=== PATIENT | female | born 1985 | race Hispanic/Latino ===

== ENCOUNTER → 2019-01-25 | Outpatient (CLI) | payer MEDICAID | END | disposition home or self-care (01) | LOC: RAH 10:17 | PROVIDERS: ATTEND Internal Medicine | DX: M47.816 Spondylosis without myelopathy or radiculopathy, lumbar region (principal); M54.2 Cervicalgia | CPT/HCPCS: 72040; 72100 ==

== ENCOUNTER 2019-02-10 05:31 | Emergency (ER) | payer MEDICAID ==
[2019-02-10] MEDS ORDERED: IBUPROFEN 400 MG TABLET ONE (05:58)
[2019-02-10] MEDS ORDERED: IBUPROFEN 200 MG TAB ONE (05:58)
[2019-02-10] MEDS ORDERED: TETANUS/DIPHTHERIA TOXOID [ADULT] 0.5 ML VIAL IM ONE (05:59)
== END 2019-02-10 07:13 | disposition home or self-care (01) ==
LOC: EDH 05:31
DX: S00.03XA Contusion of scalp, initial encounter (principal); S60.511A Abrasion of right hand, initial encounter; Z90.49 Acquired absence of other specified parts of digestive tract; Y04.2XXA Assault by strike against or bumped into by another person, initial encounter; Y93.89 Activity, other specified; Y92.89 Other specified places as the place of occurrence of the external cause; Y99.8 Other external cause status
CPT/HCPCS: 90471; 90714

== ENCOUNTER 2021-11-01 10:06 | Observation (INO) | payer OTHER, MEDICAID ==
[~2021-11-01] VITALS: Ht 157.5 cm; Wt 78.9 kg
[2021-11-01 11:21] LABS: APPEARANCE,URINE Cloudy (CLEAR); BILIRUBIN,URINE Small (NEGATIVE); COLOR,URINE Dark Yellow (YELLOW); GLUCOSE, URINE (UA) Negative (NEGATIVE); KETONES,URINE Trace mg/dL (NEGATIVE); LEUKOCYTE ESTERASE ,URINE Small (NEGATIVE); NITRATE,URINE Negative (NEGATIVE); OCCULT BLOOD,URINE Negative (NEGATIVE); PROTEIN,URINE Negative (NEGATIVE)
[2021-11-01] MEDS ORDERED: LACTATED RINGERS 1000ML 1,000 ML IV PRN (11:30)
[2021-11-01 11:31] LABS: BACTERIA,URINE Rare /HPF (None Seen); RBC,URINE 0-1 /HPF (0-1); SQUAMOUS EPITHELIAL CELL,UR Few /HPF (0-2); WBC,URINE 0-1 /HPF (0-1)
[2021-11-01 11:58] VITALS: BP 115/74
[2021-11-01] MEDS ORDERED: PROMETHAZINE HCL 25 MG/ML 1ML AMPULE IM SCH (12:00)
== END 2021-11-01 12:45 | disposition home or self-care (01) ==
LOC: EDH 10:06 → LDH 10:07 → EDH 10:18
PROVIDERS: ADMIT Obstetrics & Gynecology; ATTEND Obstetrics & Gynecology
DX: O21.2 Late vomiting of pregnancy (principal); Z3A.31 31 weeks gestation of pregnancy
CPT/HCPCS: 81001; 96360; G0378 ×2; J7120